=== PATIENT | female | born 1990 | race Caucasian/White ===

== ENCOUNTER 2019-10-07 14:40 | Inpatient (IN) ==
[2019-10-07] MEDS ORDERED: MISOPROSTOL 100 MCG TABLET VG PRN (17:58)
[2019-10-07] MEDS ORDERED: ONDANSETRON 4 MG TAB.RAPDIS PO PRN (17:58)
[2019-10-07] MEDS ORDERED: OXYTOCIN/DEXTROSE 5%-WATER 30 UNITS/500 ML BAG IV ONE (17:58)
[2019-10-07] MEDS ORDERED: RINGER'S SOLUTION,LACTATED 1,000 ML IV ONE (17:58)
[2019-10-07] MEDS ORDERED: LIDOCAINE HCL 50 ML VIAL PERI PRN (17:58)
[2019-10-07] MEDS ORDERED: BUTORPHANOL TARTRATE 2 MG/ML VIAL IV PRN ×2 (17:58)
[2019-10-07 18:14] LABS: Cocaine Ur Negative (NEGATIVE); Urine Barbiturate Negative (NEGATIVE); Urine Benzodiazepines Negative (NEGATIVE); Urine Opiates Negative (NEGATIVE); Urine PCP Negative (NEGATIVE); Urine THC Negative (NEGATIVE)
[2019-10-07 18:15] LABS: Hematocrit 39.5 % (37.0-47.0); Hemoglobin 13.7 gm/dL (12.5-16.0); Mean Cell Volume 90.4 fl (78-100); Mean Corpuscular Hemoglobin 31.4 pg (27-31); Mean Corpuscular Hgb Conc 34.7 g/dl (32-36); Mean Platelet Volume 11.4 fl (8-12.5); Neutrophil # 6.6 K/mm3 (1.3-6.0); Neutrophil % 65.7 % (42-75.0); Platelet Count 158 K/mm3 (150-450); Red Blood Count 4.37 M/mm3 (4.2-5.4)
[2019-10-07] MEDS: RINGER'S SOLUTION,LACTATED 1,000 ML IV PRN (18:29)
[2019-10-07 18:31] LABS: Albumin * 2.8 gm/dl (3.4-5.0); Anion Gap 15.8 mmol/L (6.8-13.8); BUN/Creatinine Ratio 21.5 (9.0-21.6); Bilirubin, Total 0.3 mg/dL (0.0-1.1); Ca. Corrected For Albumin 9.9 mg/dL (8.4-10.2); Calcium * 9.3 mg/dL (7.9-10.9); Carbon Dioxide 23.3 mmol/L (24-32.6); Potassium 4.1 mmol/L (3.4-4.6); Total Protein 7.3 gm/dL (6.2-8.2)
--- NOTE | 2019-10-08 09:20 | HP ---
Chief Complaint - Chief Complaint Date of Service: 10/08/19 Time of Service: 09:20 Chief Complaint: Labor induction History of Present Illness: 28 year old at 37w 0d who presented to labor and delivery last evening for a medical induction of labor due to pre-eclampsia without severe features. Reports mild contractions She denies vb or lof. Fetus is active Asymptomatic from a pre-eclampsia standpoint No other concerns today Medical History (Last Reviewed 10/08/19 @ 10:02 by Joie Kirby MD) Influenza vaccination declined Onset Date: ~07/31/18 Body piercing Onset Date: Unknown Frequent headaches Onset Date: Unknown Wears glasses Onset Date: Unknown Candidiasis of vulva and vagina Onset Date: 05/12/15 Surgical History: Surgical History (Last Reviewed 10/08/19 @ 10:02 by Joie Kirby MD) No pertinent past surgical history Onset Date: Unknown Family History: Family History (Last Reviewed 10/08/19 @ 10:02 by Joie Kirby MD) Father Hyperlipemia Hypertension Cancer Prostate cancer Grandfather Diabetes Mother Alive and well Social History: (Last Reviewed 10/08/19 @ 10:02 by Joie Kirby MD) Social History: Marital status: household members: spouse number of children: 0 current occupational status: employed current occupation: RN current occupational exposures/hazards: No Highest education level completed: Associate degree: academi Sexually Active: Yes Service: No Tobacco: Smoking Status: Never smoker Alcohol: alcohol intake: former alcohol intake frequency: a few times a month Substance Use: substance use type: does not use Dietary Habits: caffeine: Yes Type: coffee Exercise: frequency: daily Review Of Systems (GEN) - Review of Systems Generalized/Overall Review: Present: No Symptoms Reported EENTM: Present: Other - mild headache. Absent: Blurred Vision Respiratory: Present: No Symptoms Reported Cardiac: Present: No Symptoms Reported Abdominal: Present: No Symptoms Reported Genitourinary: Present: No Symptoms Reported Musculoskeletal: Present: No Symptoms Reported Neurological: Present: No Symptoms Reported Skin: Present: No Symptoms Reported Endocrine: Present: No Symptoms Reported Allergies/Adverse Reactions: Allergies Allergy/AdvReac Type Severity Reaction Status Date / Time tuberculin, purified protein Allergy Mild Rash, Verified 10/04/19 08:55 deriva Pruritis Home Medications: HOME MEDICATIONS Vits96/Iron Fum/Folic [ S] 1 tab PO DAILY 09/20/19 [Last Taken 10/07/19] Exam - Exam Vital Signs: Vital Signs - Last Taken Temp 36.3 C 10/08/19 02:00 Pulse 80 10/08/19 02:00 Resp 18 10/08/19 02:00 BP 104/63 10/08/19 02:00 Pulse Ox 97 10/08/19 02:00 Constitutional: Present: Alert, Oriented x3, Cooperative, No distress ENT Exam: Present: hearing grossly normal Eye Exam: bilateral eye: normal inspection Neck: Present: normal inspection Back Exam: Present: normal inspection, no CVA tenderness Breasts: Present: Exam deferred Respiratory: Present: lungs clear, normal breath sounds, no respiratory distress Cardiovascular/Chest: Present: regular rate, rhythm Abdomen: Present: soft, nontender, nondistended /Rectal: Present: Other - 3.5-4/50/-3 Extremity: Present: non-tender, no calf tenderness Skin Exam: Present: normal color, warm/dry, no cyanosis Appearance: Present: appropriate appearance, appropriate insight Eye contact: Present: cooperative, good eye contact, normal speech Thoughts: Present: normal thought pattern Diagnostic Studies: Abnormal Lab Results 10/07/19 10/07/19 Range/Units 18:10 18:10 MCH 31.4 H (27-31) pg Immature Gran % (Auto) 0.70 H (0.001-0.429) % Immature Gran # (Auto) 0.07 H (0.000-0.0310) K/mm3 Neutrophils # 6.6 H (1.3-6.0) K/mm3 Carbon Dioxide 23.3 L (24-32.6) mmol/L Anion Gap 15.8 H (6.8-13.8) mmol/L Random Glucose 126 H (70-110) mg/dL ALT 16 L (19-67) U/L Albumin 2.8 L (3.4-5.0) gm/dl Laboratory Results WBC 10.0 K/mm3 (4.0-10.5) 10/07/19 18:10 RBC 4.37 M/mm3 (4.2-5.4) 10/07/19 18:10 Hgb 13.7 gm/dL (12.5-16.0) 10/07/19 18:10 Hct 39.5 % (37.0-47.0) 10/07/19 18:10 MCV 90.4 fl (78-100) 10/07/19 18:10 MCH 31.4 pg (27-31) H 10/07/19 18:10 MCHC 34.7 g/dl (32-36) 10/07/19 18:10 RDW 12.0 % (11.5-14.0) 10/07/19 18:10 Plt Count 158 K/mm3 (150-450) 10/07/19 18:10 MPV 11.4 fl (8-12.5) 10/07/19 18:10 Immature Gran % (Auto) 0.70 % (0.001-0.429) H 10/07/19 18:10 Immature Gran # (Auto) 0.07 K/mm3 (0.000-0.0310) H 10/07/19 18:10 Neutrophils % 65.7 % (42-75.0) 10/07/19 18:10 Lymphocytes % 26.0 % (20-51) 10/07/19 18:10 Monocytes % 7.1 % (0.0-9) 10/07/19 18:10 Eosinophils % 0.4 % (0.0-3.0) 10/07/19 18:10 Basophils % 0.1 % (0.0-1.0) 10/07/19 18:10 Nucleated RBC % 0.0 k/mm3 (0-1) 10/07/19 18:10 Neutrophils # 6.6 K/mm3 (1.3-6.0) H 10/07/19 18:10 Lymphocytes # 2.61 k/mm3 (1.5-3.5) 10/07/19 18:10 Monocytes # 0.7 k/mm3 (0.0-1.0) 10/07/19 18:10 Eosinophils # 0.0 k/mm3 (0.0-0.7) 10/07/19 18:10 Absolute Basophils 0.0 k/mm3 (0.0-0.1) 10/07/19 18:10 Sodium 137 mmol/L (132-142) 10/07/19 18:10 Plasma Sodium 137 mmol/L (130-142) 10/07/19 18:10 Potassium 4.1 mmol/L (3.4-4.6) 10/07/19 18:10 Chloride 102 mmol/L (97-106) 10/07/19 18:10 Carbon Dioxide 23.3 mmol/L (24-32.6) L 10/07/19 18:10 Anion Gap 15.8 mmol/L (6.8-13.8) H 10/07/19 18:10 BUN 14 mg/dL (3-23) 10/07/19 18:10 Creatinine 0.65 mg/dL (0.4-1.4) 10/07/19 18:10 Est GFR (Non-Af Amer) 115 mL/min (60-130) D 10/07/19 18:10 BUN/Creatinine Ratio 21.5 (9.0-21.6) 10/07/19 18:10 Random Glucose 126 mg/dL (70-110) H 10/07/19 18:10 Calcium 9.3 mg/dL (7.9-10.9) 10/07/19 18:10 Calcium Adj for Albumin 9.9 mg/dL (8.4-10.2) 10/07/19 18:10 Total Bilirubin 0.3 mg/dL (0.0-1.1) 10/07/19 18:10 AST 14 U/L (0-48) 10/07/19 18:10 ALT 16 U/L (19-67) L 10/07/19 18:10 Alkaline Phosphatase 106 U/L (50-170) 10/07/19 18:10 Total Protein 7.3 gm/dL (6.2-8.2) 10/07/19 18:10 Albumin 2.8 gm/dl (3.4-5.0) L 10/07/19 18:10 Urine Opiates Screen Negative (NEGATIVE) 10/07/19 17:59 Barbiturate Screen Negative (NEGATIVE) 10/07/19 17:59 Ur Phencyclidine Scrn Negative (NEGATIVE) 10/07/19 17:59 Urine Amphetamine Negative (NEGATIVE) 10/07/19 17:59 U Benzodiazepines Scrn Negative (NEGATIVE) 10/07/19 17:59 Urine Cocaine Screen Negative (NEGATIVE) 10/07/19 17:59 Urine Marijuana (THC) Negative (NEGATIVE) 10/07/19 17:59 Blood Type A Positive 10/07/19 18:10 Antibody Screen Negative 10/07/19 18:10 Assessment/Plan - Narrative Narrative: 28 year old at 37w0d Pitocin for labor induction. AROM for a large amount of clear fluid GBS negative: prophylaxis not indicated Pre-eclampsia without severe features: blood pressures in the normal to mild range. Asymptomatic other than a headache. Labs normal on admission to labor and delivery
[2019-10-08] MEDS ORDERED: BUPIVACAINE HCL/0.9 % NACL/PF 250 ML EP PRN (09:21)
[2019-10-08] MEDS ORDERED: NALOXONE HCL 1 MG/1 ML SYRG IV PRN (09:21)
[2019-10-08] MEDS ORDERED: ONDANSETRON HCL/PF 2 MG/ML VIAL IV PRN (09:21)
[2019-10-08] MEDS ORDERED: fentaNYL CITRATE/PF 50 MCG/ML AMPUL IT SCH (09:30)
--- NOTE | 2019-10-08 10:11 | ANES ---
Anesthesia Pre Procedure Eval Vitals/Labs: Last Vital Signs Temp 36.3 C 10/08/19 02:00 Pulse 80 10/08/19 02:00 Resp 18 10/08/19 02:00 BP 104/63 10/08/19 02:00 Pulse Ox 97 10/08/19 02:00 HOME MEDICATIONS Vits96/Iron Fum/Folic [ S] 1 tab PO DAILY 09/20/19 [Last Taken 10/07/19] Allergies/Adverse Reactions: Allergies Allergy/AdvReac Type Severity Reaction Status Date / Time tuberculin, purified protein Allergy Mild Rash, Verified 10/04/19 08:55 deriva Pruritis - Planned Procedure Planned Procedure: INDUCTION Medication List Reviewed:: Yes Allergies Verified: Yes Medical History (Last Reviewed 10/08/19 @ 10:02 by Joie Kirby MD) Influenza vaccination declined Onset Date: ~07/31/18 Body piercing Onset Date: Unknown Frequent headaches Onset Date: Unknown Wears glasses Onset Date: Unknown Candidiasis of vulva and vagina Onset Date: 05/12/15 Surgical History (Last Reviewed 10/08/19 @ 10:02 by Joie Kirby MD) No pertinent past surgical history Onset Date: Unknown Family History (Last Reviewed 10/08/19 @ 10:11 by Fernando Marrero CRNA) Father Hyperlipemia Hypertension Cancer Prostate cancer Grandfather Diabetes Mother Alive and well - Family Anesthesia History Family History:: no untoward family reactions to anesthesia - Airway/Neck/Teeth Within Normal Limits:: Yes Teeth Condition: intact Neck Exam: full range of motion Mallampatti Score: 2 Thyromental (T-M) distance: > 6 cm Mandibulo Hyoid distance: > 3 cm - Respiratory Respiratory Physical: lungs clear Smoking Status: Never smoker Sleep Apnea currently treated: No Sleep Apnea by current assessment: No - Cardiovascular Tolerate Activity: Good Heart Sounds: S1 & S2, Regular - Gastrointestinal NPO since: MN - Anesthesia Assessment and Plan ASA Class: PS, II, E Anesthesia Type Plan: Epidural Planned difficult intubation/equipment available: No
--- NOTE | 2019-10-08 10:12 | ANES ---
Post Anesthesia Assessment - Vital Signs Vitals: Last Vital Signs Temp 36.3 C 10/08/19 02:00 Pulse 80 10/08/19 02:00 Resp 18 10/08/19 02:00 BP 104/63 10/08/19 02:00 Pulse Ox 97 10/08/19 02:00 Airway Patency: Normal - Mental Status Level Of Consciousness: Awake - Pain Level Pain Score: 1 - N/V Assessment Nausea/Vomiting Presence: None Dehydration:: No
--- NOTE | 2019-10-08 10:12 | ANES ---
Post Anesthesia Discharge - Transfer of Care Transfer of Care handoff given to nurse: Yes - Anesthesia Post Op Note Anesthesia Post Op Note: Care transferred to OB RN
--- NOTE | 2019-10-08 10:15 | ANES ---
Anesthesia Procedure Note Procedure Note: ANESTHESIA PROCEDURE NOTE Date of Procedure: 10/08/2019 Time of procedure: . Performed by: Jeffy Marrero CRNA [place] Maker: None. Preprocedure diagnosis: Active labor. Post procedure diagnosis: Same. Procedure: Insertion of labor epidural. Indications: The patient is a 28-year-old prima para female in active labor requesting labor epidural for pain management. Findings: See below. Details of the procedure: The patient was placed in a sitting position. Back was prepped with DuraPrep. Patient was then draped in a sterile fashion. Lidocaine 1% was infiltrated to the skin and subcutaneous tissues at the level of the L3 4 interspace. The epidural space was identified using a 18-gauge Tuohy needle with [id number] technique. 20 mcg fentanyl was given intrathecally using a 27 ga. spinal needle. Epidural catheter was inserted without difficulty. Negative test dose was elicited using 5 mL of 1.5% preservative-free lidocaine plus epinephrine 1 200,000. The epidural catheter was then taped and secured in place. EBL: Minimal. Fluids: N/A. Specimen: N/A. Post procedure condition: The patient tolerated the procedure well. No complications were noted. Thank you for this consultation. Crespo CRNA
[2019-10-08] MEDS: RINGER'S SOLUTION,LACTATED 1,000 ML IV PRN (10:30)
[2019-10-08] MEDS ORDERED: ACETAMINOPHEN 500 MG TABLET PO ONE (13:49)
--- NOTE | 2019-10-08 13:56 | PN ---
Progess Note - Interim Date: 10/08/19 Time: 13:55 Narrative: 10/08/19 13:55 Patient without complaints Called by RN due to vaginal bleeding cvx is /-2 Moderate amount of bleeding with one clot FHT is reassuring Continue pitocin
--- NOTE | 2019-10-08 17:04 | CONS ---
HPI - General Date of Service: 10/08/19 Source: patient - History of Present Illness Initial Comments: Elin Atkins is a 28-year-old white female 1 para 0 with no significant past medical history in the past who was referred to me for tachycardia. 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 She says she usually is in the 60s as far as her heart rate. She did notice some palpitations prior to coming to the hospital and her heart rate was in the 90s to low 100s. Her BP were 143/93 , HR of 137 around 17:39 on and then 104/63, HR 80 around 0200 on 10/08/2019. Her heart rate went up even higher when she got the epidural and was started on the Pitocin drip. Her EKG done at around 11:30 in the morning showed sinus tachycardia possible atrial flutter. I could see definitely P waves without sawtooth pattern so I will say it was sinus tachycardia although the heart rate was around 150-151. Her CBC and BMP were essentially WNL. Currently she is not complaining of any chest pain, shortness of breath but does feel the palpitations. Her telemetry has been showing sinus tachycardia in the low 100s to 130. Allergies/Adverse Reactions: Allergies tuberculin, purified protein deriva Allergy (Mild, Verified 10/04/19 08:55) Rash, Pruritis Home Medications: Home Medications Medication Instructions Recorded Last Taken Vits96/Iron Fum/Folic 1 tab PO DAILY 09/20/19 10/07/19 [ S] Medications - Medications Current Medications: Current Medications Oxytocin/Dextrose (Pitocin 30 Units/D5w 500 Ml) 30 units in 500 mls @ 2 mls/hr IV PRN ONE; Protocol Stop: 10/18/19 03:57 Last Admin: 10/07/19 18:30 Dose: 2 mls/hr Documented by: Lactated Ringer's (Lactated Ringers) 1,000 mls @ 125 mls/hr IV .Q8H PRN PRN Reason: HYDRATION Stop: 11/06/19 17:59 Last Admin: 10/08/19 10:30 Dose: 125 mls/hr Documented by: Bupivacaine HCl/Sodium Chloride (Bupivacaine 0.125% In Ns 0.9% Cassette) 250 mls @ 0 mls/hr EP Q24H PRN; Protocol PRN Reason: LABOR PAIN Stop: 11/07/19 09:22 Last Admin: 10/08/19 10:51 Dose: 10 mls/hr Documented by: Review of Systems - Review of Systems Generalized/Overall Review: Absent: Weakness, Chills, Fever EENTM: Absent: Blurred Vision Respiratory: Absent: Cough, Shortness of Breath, Orthopnea, Wheezing Cardiac: Present: Palpitations. Absent: Chest Pain, Edema Abdominal: Absent: Nausea, Vomiting Genitourinary: Absent: Urgency, Frequency Musculoskeletal: Absent: Joint Pain, Back Pain Neurological: Absent: Headache Skin: Absent: Lesions, Rash Misc: All systems neg except as marked Physical Examination - Exam Vital Signs: Vital Signs - Last Taken Temp 36.3 C 10/08/19 02:00 Pulse 80 10/08/19 02:00 Resp 18 10/08/19 02:00 BP 104/63 10/08/19 02:00 Pulse Ox 97 10/08/19 02:00 O2 Oxygen Delivery Method Room Air Constitutional: Present: Alert, Oriented x3, Cooperative ENT Exam: Present: hearing grossly normal Eye Exam: bilateral eye: normal inspection, PERRL, EOMI Neck: Present: supple Respiratory: Present: decreased breath sounds, No rales, No wheezing Cardiovascular/Chest: Present: regular rate, rhythm, no JVD, no murmur, tachycardia. Absent: gallop/S3, gallop/S4 Abdomen: Present: soft, nontender, distended - Appropriate for age of gestation Extremity: Present: no calf tenderness, lower extremity edema - Results and Findings: Lab/Microbiology results last 24 hrs: Abnormal/Pending Laboratory Last 24 HRS 10/07/19 10/07/19 18:10 18:10 MCH 31.4 H Immature Gran % (Auto) 0.70 H Immature Gran # (Auto) 0.07 H Neutrophils # 6.6 H Carbon Dioxide 23.3 L Anion Gap 15.8 H Random Glucose 126 H ALT 16 L Albumin 2.8 L - Assessments/Findings (1) Tachycardia Diagnosis(s): Her telemetry showing sinus tachycardia in the 103-130 range with no PACs or PVCs and most likely is due to multifactorial reasonslikely due to the physiologic stress of and labor, probable anxiety, and Pitocin drip (which can cause cardiac arrhythmias). We will defer from giving her beta- suma at this time. Will add TSH to her labs. Consider doing echocardiogram to determine structural heart disease if patient continues to get worse. Problem: Acute (2) Gestational proteinuria without hypertension Problem: Acute Qualifiers: Trimester: third trimester Qualified Code(s): O12.13 - Gestational proteinuria, third trimester (3) Pre-eclampsia Problem: Acute Qualifiers: Trimester: third trimester Qualified Code(s): O14.93 - Unspecified pre- eclampsia, third trimester
[2019-10-08] MEDS ORDERED: OXYTOCIN/DEXTROSE 5%-WATER 30 UNITS/500 ML BAG IV ONE (21:07)
[2019-10-08] MEDS ORDERED: HYDROCORTISONE 30 APPL TUBE TP PRN (21:07)
[2019-10-08] MEDS ORDERED: oxyCODONE HCL/ACETAMINOPHEN 1 TAB TABLET PO PRN (21:07)
[2019-10-08] MEDS ORDERED: BISACODYL 10 MG SUPP.RECT RC PRN (21:07)
[2019-10-08] MEDS ORDERED: BENZOCAINE/MENTHOL 81 SPRAY CAN TP PRN (21:07)
[2019-10-08] MEDS ORDERED: SENNOSIDES 8.6 MG TABLET PO PRN (21:07)
[2019-10-08] MEDS ORDERED: GLYCERIN/WITCH HAZEL LEAF 40 APPL BOX TP PRN (21:07)
--- NOTE | 2019-10-08 21:07 | OR ---
Operative Report - Dictated Report Narrative: Date of delivery: 10/08/2019 Time of delivery: 2039 Gender: male weight: 3127 grams APGARS: 04/09 Procedure: Description of the procedure: 28 year old at 37w 0d who presented to labor and delivery for a medical IOL due to pre-eclampsia without severe features. She progressed to complete dilation. She delivered a viable male infant in the direct OA position. The shoulders delivered spontaneously without any traction followed by the rest of the body. Cord clamping was delayed for 60 seconds. The cord was clamped and cut. The placenta delivered by expression and appeared intact. A second degree perineal laceration was repaired in the standard surgical fashion. EBL: 200 mL Complications: none Specimens: placenta to pathology History for Definition: * The number of deliveries resulting in a live the patient experienced prior to current hospitalization * The previous delivery of live twins or any live multiple gestation is considered one live event. *If primagravida or nulliparous is documented select zero for the number of previous live births. Live Events: 0
[2019-10-08] MEDS: IBUPROFEN 800 MG TABLET PO PRN (23:54)
[2019-10-09] MEDS: DOCUSATE SODIUM 100 MG CAPSULE PO SCH (08:57)
--- NOTE | 2019-10-09 08:58 | PN ---
Subjective - Date and Time Seen Date: 10/09/19 Time: 08:55 Subjective Narrative: Patient without complaints Objective Objective Narrative: See vital signs - Review of Systems Generalized/Overall Review: Reports: No Symptoms Reported Misc: All systems neg except as marked - Vitals Vitals: Last Vital Signs Temp 36.6 C 10/09/19 06:44 Pulse 97 10/09/19 06:44 Resp 18 10/09/19 06:44 BP 110/63 10/09/19 06:44 Pulse Ox 98 10/09/19 06:44 - Exam Constitutional: Present: Alert, Oriented x3, Cooperative, No distress Abdomen: Present: soft, nontender, nondistended - fundus is firm Extremity: Present: non-tender, no calf tenderness Skin Exam: Present: normal color, warm/dry, no cyanosis Appearance: Present: appropriate appearance Eye contact: Present: cooperative Thoughts: Present: normal thought pattern Cauti Physician Documentation - Urinary Catheter Management Urethral (Sommers) Urethral Indwelling: No Date of Insertion: 10/08/19 Time of Insertion: 10:50 Date of Removal: 10/08/19 Time of Removal: 19:30 Assessment/Plan Plan Narrative: PPD 1 s/p Doing well Discharge tomorrow
--- NOTE | 2019-10-09 09:50 | PN ---
Progess Note - Interim Date: 10/09/19 Time: 09:47 Narrative: 10/09/19 09:47 patient has delivered her bay. Her HR in her VS shows 77-97. Her telemetry strip shows NSR to sinus tachycardiawith no SVT. we may d/c her telemetry.
[2019-10-09] MEDS: IBUPROFEN 800 MG TABLET PO PRN ×2 (12:20→19:27)
[2019-10-10] MEDS: DOCUSATE SODIUM 100 MG CAPSULE PO SCH ×2 (03:03→08:19)
[2019-10-10] MEDS: IBUPROFEN 800 MG TABLET PO PRN (03:19)
[2019-10-10 06:58] VITALS: BP 101/64
--- NOTE | 2019-10-10 08:44 | PN ---
Subjective - Date and Time Seen Date: 10/10/19 Time: 08:43 Subjective Narrative: Patient without complaints Objective Objective Narrative: See vital signs - Review of Systems Generalized/Overall Review: Reports: No Symptoms Reported Misc: All systems neg except as marked - Vitals Vitals: Last Vital Signs Temp 36.8 C 10/10/19 06:49 Pulse 90 10/10/19 06:49 Resp 20 10/10/19 06:49 BP 101/64 10/10/19 06:49 Pulse Ox 99 10/10/19 06:49 - Exam Constitutional: Present: Alert, Oriented x3, Cooperative, No distress Abdomen: Present: soft, nontender, nondistended Extremity: Present: non-tender, no calf tenderness Skin Exam: Present: normal color, warm/dry, no cyanosis Appearance: Present: appropriate appearance Eye contact: Present: cooperative Thoughts: Present: normal thought pattern Cauti Physician Documentation - Urinary Catheter Management Urethral (Sommers) Urethral Indwelling: No Date of Insertion: 10/08/19 Time of Insertion: 10:50 Date of Removal: 10/08/19 Time of Removal: 19:30 Assessment/Plan Plan Narrative: PPD 2 s/p Doing well Discharge today Discharge instructions given Follow-up in 4 weeks or sooner for any other concerns
== END 2019-10-10 11:30 | disposition home or self-care (01) | DRG 806 ==
LOC: OB 17:46
PROVIDERS: ADMIT Obstetrics & Gynecology; ATTEND Obstetrics & Gynecology
CPT/HCPCS: 36415; 59025; 80053; 80307; 84443; 85025; 86850; 88307; 88888; 93005